=== PATIENT | male | born 1955 | race Two or more races ===

== ENCOUNTER 2018-03-26 13:25 | Emergency (ER) | payer OTHER ==
[2018-03-26] MEDS ORDERED: SOD CHLORIDE 0.9% 500 ML IV (15:00)
[2018-03-26] MEDS: KETOROLAC 15 MG INJ IM (15:06)
[2018-03-26] MEDS: HYDROCODONE/APAP (5/325) TAB PO (15:34)
== END 2018-03-26 15:30 | disposition home or self-care (01) ==
LOC: FTE 13:25
DX: M54.42 Lumbago with sciatica, left side (principal); I10 Essential (primary) hypertension; E11.9 Type 2 diabetes mellitus without complications; Z79.4 Long term (current) use of insulin; Z79.82 Long term (current) use of aspirin
CPT/HCPCS: 96372; 99284-25; J1885